=== PATIENT | female | born 1965 | race Caucasian/White ===

== ENCOUNTER 2017-08-12 11:45 | Inpatient (IN) | payer OTHER ==
[~2017-08-12] VITALS: Ht 170.2 cm; Wt 58.2 kg
[2017-08-12] MEDS ORDERED: SODIUM CHLORIDE 0.9% 1,000 ML IV ONE ×2 (11:58→13:45)
[2017-08-12 12:23] LABS: HEMATOCRIT. 36.7 % (36.0-48.0); HEMOGLOBIN. 12.4 g/dL (12.0-16.0); MEAN CORPUSCULAR HEMOGLOBIN 30.4 pg (28.0-32.0); MEAN PLATELET VOLUME 8.5 fl (7.4-10.4); PLATELET 346 x1000/uL (130-400); RED BLOOD CELL COUNT 4.08 mill/uL (4.2-5.4); RED CELL DISTRIBUTION WIDTH 13.3 % (11.6-14.6)
[2017-08-12 12:30] LABS: CHLORIDE 109 mEq/L (98-107)
[2017-08-12 12:32] LABS: PROTHROMBIN TIME 10.8 sec (9.4-11.6)
[2017-08-12 12:39] LABS: CARBON DIOXIDE 28 mEq/L (21-32)
[2017-08-12 12:43] LABS: PLATELET ESTIMATE NORMAL
[2017-08-12 15:04] LABS: CLARITY URINE CLEAR (CLEAR); COLOR URINE YELLOW (YELLOW); KETONES URINE NEGATIVE (NEGATIVE); LEUKOCYTE ESTERASE URINE TRACE (NEGATIVE); NITRITE URINE NEGATIVE (NEGATIVE); OCCULT BLOOD URINE NEGATIVE (NEGATIVE); PROTEIN URINE NEGATIVE (NEGATIVE); SPECIFIC GRAVITY URINE 1.009 (1.005-1.030); UROBILINOGEN URINE 0.2 E.U./dL (0.2-1.0)
[2017-08-12] MEDS ORDERED: LEVOFLOXACIN 500MG PREMIX 100 ML IV ONE (15:45)
[2017-08-12 15:55] LABS: HEMATOCRIT. 31.1 % (36.0-48.0); HEMOGLOBIN. 10.5 g/dL (12.0-16.0); MEAN CORPUSCULAR HEMOGLOBIN 30.2 pg (28.0-32.0); MEAN CORPUSCULAR VOLUME 89.5 fL (81.0-99.0); MEAN PLATELET VOLUME 8.4 fl (7.4-10.4); PLATELET 281 x1000/uL (130-400); RED BLOOD CELL COUNT 3.48 mill/uL (4.2-5.4); RED CELL DISTRIBUTION WIDTH 13.1 % (11.6-14.6)
[2017-08-12 16:49] LABS: PLATELET ESTIMATE NORMAL
[2017-08-12] MEDS ORDERED: ACETAMINOPHEN 650MG SUPP PR PRN (19:45)
[2017-08-12] MEDS ORDERED: DIPHENHYDRAMINE 50MG/ML VIAL IV PRN (19:45)
[2017-08-12] MEDS ORDERED: ACETAMINOPHEN 650MG/20.3ML UDC GT PRN (19:45)
[2017-08-12] MEDS ORDERED: GUAIFENESIN 200MG/10ML SUGAR FREE UDC PO PRN (19:45)
[2017-08-12] MEDS ORDERED: ACETAMINOPHEN 325MG TABLET PO PRN (19:45)
[2017-08-12] MEDS ORDERED: HYDROCODONE/ACETAMINOPHEN 5/325MG TABLET PO PRN (19:45)
[2017-08-12] MEDS ORDERED: ONDANSETRON HCL 4MG/2ML VIAL IV PRN (19:45)
[2017-08-12] MEDS ORDERED: CLONIDINE 0.1MG TABLET PO PRN (19:45)
[2017-08-12] MEDS ORDERED: NA PHOS,M-B/NA PHOS,DI-BA ENEMA 118ML PR PRN (19:45)
[2017-08-12] MEDS ORDERED: MAGNESIUM/ALUMINUM HYDROXIDE/SIMETHICONE 30ML UDC PO PRN (19:45)
[2017-08-12] MEDS ORDERED: DOCUSATE SODIUM 100MG CAPSULE PO PRN (19:45)
[2017-08-12] MEDS ORDERED: VANCOMYCIN 1 G PREMIX 200 ML IV NR (19:45)
[2017-08-12] MEDS ORDERED: IPRATROPIUM/ALBUTEROL 0.5-3(2.5)MG/3ML NEB INH PRN (19:45)
[2017-08-12] MEDS: SODIUM CHLORIDE 0.45% 1,000 ML IV SCH (20:22)
[2017-08-12] MEDS: SODIUM CHLORIDE 0.9% INJ 3ML FLUSH IVF SCH (22:00)
[2017-08-12 23:02] LABS: CREATINE KINASE 35 IU/L (26-192); TROPONIN I < 0.02 ng/mL (0.00-0.04)
[2017-08-13] VITALS (72 sets, daily range): BP systolic 77–109; BP diastolic 17–68
[2017-08-13] MEDS ORDERED: NOREPINEPHRINE 4 MG in DEXTROSE 5% WATER 250 ML IV PRN (01:00)
[2017-08-13] MEDS ORDERED: [UNRECOGNIZED DRUG - CODE] PO (05:52)
[2017-08-13] MEDS ORDERED: LEVO75TA PO (05:52)
[2017-08-13 07:56] LABS: HEMATOCRIT. 29.8 % (36.0-48.0); MEAN CORPUSCULAR HEMOGLOBIN 30.4 pg (28.0-32.0); MEAN CORPUSCULAR VOLUME 90.5 fL (81.0-99.0); MEAN PLATELET VOLUME 8.7 fl (7.4-10.4); PLATELET 267 x1000/uL (130-400); RED BLOOD CELL COUNT 3.29 mill/uL (4.2-5.4); RED CELL DISTRIBUTION WIDTH 13.2 % (11.6-14.6)
[2017-08-13] MEDS ORDERED: INFLUENZA VIRUS VACCINE 0.5ML SYR IM ONE (08:00)
[2017-08-13 08:29] LABS: CARBON DIOXIDE 26 mEq/L (21-32); CHLORIDE 113 mEq/L (98-107); CREATINE KINASE 48 IU/L (26-192); HDL CHOLESTEROL 69 mg/dL (40-59); LDL CHOLESTEROL 53 mg/dL (5-100); TROPONIN I < 0.02 ng/mL (0.00-0.04)
[2017-08-13] MEDS: SODIUM CHLORIDE 0.45% 1,000 ML IV SCH ×2 (08:53→23:39)
[2017-08-13] MEDS: ENOXAPARIN 40MG/0.4ML SYR SUBCUT SCH (08:54)
[2017-08-13 08:58] LABS: PLATELET ESTIMATE NORMAL
[2017-08-13 11:46] LABS: *AMPHETAMINES SCREEN URINE PRESUMTIVE POSITIVE (NEGATIVE); *BARBITURATES SCREEN URINE NEGATIVE (NEGATIVE); *BENZODIAZEPINES SCREEN URINE NEGATIVE (NEGATIVE); *COCAINE SCREEN URINE NEGATIVE (NEGATIVE); CANNABINOID URINE SCREEN NEGATIVE (NEGATIVE); METHADONE URINE SCREEN NEGATIVE (NEGATIVE); OPIATES URINE SCREEN NEGATIVE (NEGATIVE); PHENCYCLIDINE URINE SCREEN NEGATIVE (NEGATIVE)
[2017-08-13] MEDS ORDERED: ALBUMIN HUMAN 25GM/100ML (25%) IV NR (11:49)
[2017-08-13] MEDS ORDERED: SODIUM CHLORIDE 0.9% 500 ML IV ONE (12:00)
[2017-08-13] MEDS ORDERED: SODIUM CHLORIDE 0.9% 1000ML BAG (SEPSIS BOLUS) IV ONE (12:00)
[2017-08-13] MEDS ORDERED: [UNRECOGNIZED DRUG - OTHER] PO SCH (14:30)
[2017-08-13] MEDS ORDERED: LEVOFLOXACIN 500MG PREMIX 100 ML IV SCH (17:00)
[2017-08-13] MEDS: LEVOTHYROXINE SODIUM 75MCG TABLET PO SCH (17:08)
[2017-08-13] MEDS: LEVOFLOXACIN 500MG PREMIX 100 ML IV SCH (17:08)
[2017-08-14] VITALS (62 sets, daily range): BP systolic 82–162; BP diastolic 32–78
[2017-08-14 04:38] LABS: HEMATOCRIT. 30.2 % (36.0-48.0); HEMOGLOBIN. 9.9 g/dL (12.0-16.0); MEAN CORPUSCULAR HEMOGLOBIN 29.4 pg (28.0-32.0); MEAN CORPUSCULAR VOLUME 89.9 fL (81.0-99.0); MEAN PLATELET VOLUME 9.2 fl (7.4-10.4); PLATELET 264 x1000/uL (130-400); RED BLOOD CELL COUNT 3.36 mill/uL (4.2-5.4); RED CELL DISTRIBUTION WIDTH 13.2 % (11.6-14.6)
[2017-08-14 05:01] LABS: CARBON DIOXIDE 25 mEq/L (21-32); CHLORIDE 111 mEq/L (98-107)
[2017-08-14] MEDS ORDERED: NOREPINEPHRINE 4 MG in DEXT 5% WATER 250 ML IV PRN (05:04)
[2017-08-14] MEDS: SODIUM CHLORIDE 0.9% INJ 3ML FLUSH IVF SCH ×2 (06:26→14:05)
[2017-08-14 07:02] LABS: PLATELET ESTIMATE NORMAL
[2017-08-14] MEDS: ENOXAPARIN 40MG/0.4ML SYR SUBCUT SCH (08:36)
[2017-08-14] MEDS: LEVOTHYROXINE SODIUM 75MCG TABLET PO SCH (09:01)
[2017-08-14] MEDS: LEVOFLOXACIN 500MG PREMIX 100 ML IV SCH (10:39)
[2017-08-14] MEDS: SODIUM CHLORIDE 0.45% 1,000 ML IV SCH (11:56)
[2017-08-15] MEDS ORDERED: LEVOFLOXACIN 500MG TABLET PO SCH (11:00)
== END 2017-08-14 20:00 | disposition short-term general hospital (02) | DRG 872 ==
LOC: ER 11:45 → MICUSO 17:36 → ENRESERV 19:21 → CANRESERV 19:21 → EDBEDREQSVC 19:46 → CANRESERV 22:11 → ENRESERV 22:11 → EDBEDREQSVC 22:23 → ENRESERV 22:37 → CANRESERV 22:37 → EDBEDREQSVC 08-13 00:43 → ENRESERV 08-13 02:12 → EDBEDREQ 08-13 02:39
PROVIDERS: ADMIT Family Medicine; ATTEND Family Medicine
DX: A41.9 Sepsis, unspecified organism (principal); D64.9 Anemia, unspecified; N39.0 Urinary tract infection, site not specified; E03.9 Hypothyroidism, unspecified; F90.9 Attention-deficit hyperactivity disorder, unspecified type; Z88.8 Allergy status to other drugs, medicaments and biological substances; Z79.899 Other long term (current) drug therapy
CPT/HCPCS: 36415; 71045; 76770; 80048; 80053; 80061; 80305; 81001; 82550; 82962; 83605; 84443; 84484; 85025; 85610; 87040; 87086; 87804; 93005; 93306; 93970; 96361; 96365; 99285; J1650; J1956; J3370; J3490; J7030; J7040; J7060; P9047